=== PATIENT | female | born 1990 | race African-American/Black ===

== ENCOUNTER 2017-09-19 14:15 | Inpatient (IN) | END 2017-09-20 14:15 | disposition home or self-care (01) | DRG 782 ==

== ENCOUNTER 2017-10-19 15:31 | Outpatient (CLI) | END 2017-10-19 16:20 | disposition home or self-care (01) ==

== ENCOUNTER 2017-10-19 16:24 | Emergency (ER) | END 2017-10-19 17:26 | disposition home or self-care (01) ==

== ENCOUNTER 2017-12-10 01:18 | Inpatient (IN) | END 2017-12-12 17:45 | disposition home or self-care (01) | DRG 775 ==